=== PATIENT | male | born 1965 | race Caucasian/White ===

== ENCOUNTER 2021-08-17 05:22 | Observation (INO) ==
[2021-08-17] MEDS ORDERED: VANCOMYCIN 1,000 MG VIAL ONE (05:56)
[2021-08-17] MEDS ORDERED: CLINDAMYCIN INJ 900 MG/50 ML PREMIX IV ONE (05:56)
[2021-08-17] MEDS ORDERED: DIAZEPAM 5 MG TABLET PO ONE (06:19)
[2021-08-17] MEDS ORDERED: FAMOTIDINE 20 MG TABLET PO ONE (06:19)
[2021-08-17] MEDS ORDERED: FAMOTIDINE 20 MG TABLET ONE (06:26)
[2021-08-17] MEDS ORDERED: DIAZEPAM 5 MG TABLET ONE (06:26)
[2021-08-17] MEDS ORDERED: DEXAMETHASONE 4 MG/1 ML VIAL ONE ×2 (06:40→08:23)
[2021-08-17] MEDS ORDERED: LIDOCAINE 1% 5 ML VIAL ONE (06:40)
[2021-08-17] MEDS ORDERED: MIDAZOLAM 2 MG/2 ML VIAL ONE (06:40)
[2021-08-17] MEDS ORDERED: ROPIVACAINE 0.5% 30 ML VIAL ONE (06:40)
[2021-08-17] MEDS ORDERED: ALBUTEROL 2.5 MG/3 ML NEB RESP TX PRN (07:10)
[2021-08-17] MEDS ORDERED: fentaNYL 100 MCG/2 ML VIAL ONE (07:13)
[2021-08-17] MEDS ORDERED: diphenhydrAMINE CAP 25 MG CAPSULE PO PRN (07:14)
[2021-08-17] MEDS ORDERED: MORPHINE 2 MG/1 ML SYRINGE IV PRN ×2 (07:14)
[2021-08-17] MEDS ORDERED: MAGNESIUM HYDROXIDE SUSP 30 ML UDCUP PO PRN (07:14)
[2021-08-17] MEDS ORDERED: ONDANSETRON 4 MG/2 ML VIAL IV PRN ×2 (07:14→10:10)
[2021-08-17] MEDS ORDERED: VANCOMYCIN INJ 1,000 MG in SODIUM CHLORIDE 0.9% 250 ML IV ONE ×2 (07:39→16:00)
[2021-08-17] MEDS ORDERED: DESFLURANE 1 UNIT/15 MINUTE INH ONE (07:56)
[2021-08-17] MEDS ORDERED: ROCURONIUM 50 MG/5 ML VIAL IV ONE (07:56)
[2021-08-17] MEDS ORDERED: LIDOCAINE 2% 5 ML VIAL ONE (07:56)
[2021-08-17] MEDS ORDERED: SUCCINYLCHOLINE 200 MG/10 ML VIAL ONE (07:56)
[2021-08-17] MEDS ORDERED: TRANEXAMIC ACID 1,000 MG/10 ML VIAL ONE (07:56)
[2021-08-17] MEDS ORDERED: propofoL 200 MG/20 ML VIAL IV ONE (07:56)
[2021-08-17] MEDS ORDERED: LACTATED RINGERS 1,000 ML IV SCH (08:00)
[2021-08-17] MEDS ORDERED: BACITRACIN OINT 0.9 GM PACK TOP ONE (08:08)
[2021-08-17] MEDS ORDERED: ONDANSETRON 4 MG/2 ML VIAL ONE (08:23)
[2021-08-17] MEDS ORDERED: SUGAMMADEX 200 MG/2 ML VIAL IV ONE (08:24)
[2021-08-17] MEDS ORDERED: PHENYLEPHRINE 1 MG/10 ML SYRINGE IV ONE ×2 (08:58)
[2021-08-17] MEDS ORDERED: GLYCOPYRROLATE 0.4 MG/2 ML VIAL ONE (09:14)
[2021-08-17] MEDS ORDERED: MORPHINE 10 MG/1 ML VIAL ONE (10:14)
[2021-08-17] MEDS: MORPHINE 10 MG/1 ML VIAL IV PRN ×3 (10:16→10:32)
[2021-08-17] MEDS ORDERED: GLUCAGON 1 MG VIAL IM PRN (12:10)
[2021-08-17] MEDS ORDERED: DEXTROSE 50% 25 GM/50 ML SYRINGE IV PRN (12:10)
[2021-08-17] MEDS: KETOROLAC 30 MG/1 ML VIAL IV SCH ×3 (14:04→21:27)
[2021-08-17] MEDS: CLINDAMYCIN INJ 900 MG/50 ML PREMIX IV SCH ×2 (14:04→21:34)
[2021-08-17] MEDS: LACTATED RINGERS 1,000 ML IV SCH ×3 (14:04→23:33)
[2021-08-17] MEDS: GABAPENTIN 100 MG CAPSULE PO SCH ×2 (18:24→21:31)
[2021-08-17] MEDS: Fluticasone-Umeclidin-Vilanter [Trelegy Ellipta] 200-62.5-25 mcg INH SCH (18:24)
[2021-08-17] MEDS: FUROSEMIDE 80 MG TABLET PO SCH (18:24)
[2021-08-17] MEDS: INSULIN LISPRO 100 UNIT/ML SUBCUT SCH ×2 (18:25→21:28)
[2021-08-17] MEDS: POTASSIUM CHLORIDE 20 MEQ TABLET PO SCH (21:30)
[2021-08-17] MEDS: MELATONIN 3 MG TABLET PO PRN (21:31)
[2021-08-17] MEDS: DOCUSATE SODIUM 100 MG CAPSULE PO SCH (21:31)
[2021-08-17] MEDS: APIXABAN 2.5 MG TABLET PO SCH (21:31)
[2021-08-18] MEDS: KETOROLAC 30 MG/1 ML VIAL IV SCH ×2 (00:06→03:28)
[2021-08-18 06:49] LABS: Calcium 8.3 MG/DL (8.5-10.1); Osmolality,Calculated 282.7 MOS/KG (273-304); Potassium 4.1 MMOL/L (3.5-5.1)
[2021-08-18 06:57] LABS: Basophils % 0.1 % (0.0-0.8); Hematocrit 45.5 VOL% (42.0-52.0); Hemoglobin 13.5 GM/DL (14.0-18.0); Immature Granulocytes % 0.8 %; Immature Granulocytes Absolute 0.11 #; Lymphocytes # 0.7 10*3/uL (1.4-4.0); Lymphocytes % 4.8 % (21.2-54.2); Mean Corpuscular HGB Conc 29.7 GM/DL (32-36); Mean Corpuscular Volume 100.4 FL (87-102); Mean Platelet Volume 9.6 FL (9.6-12.0); Monocytes % 7.9 % (1.7-12.7); Neutrophils % 86.4 % (38.7-73.9); Platelet Count 260 T/CUMM (130-400); Red Blood Count 4.53 MC/CUMM (3.8-5.5); Red Cell Distribution Width 15.3 % (9.3-17.3); White Blood Count 14.1 T/CUMM (4-12)
[2021-08-18 07:02] LABS: Lymphocytes 3 % (20-55); Platelet Estimate Normal; Segmented Neutrophils 92 % (50-85); Total Cells Counted 100
[2021-08-18] MEDS: INSULIN LISPRO 100 UNIT/ML SUBCUT SCH ×4 (07:44→21:25)
[2021-08-18] MEDS: amLODIPine 10 MG TABLET PO SCH (08:58)
[2021-08-18] MEDS: METOPROLOL TARTRATE 100 MG TABLET PO SCH ×2 (08:58→21:25)
[2021-08-18] MEDS: ASCORBIC ACID 500 MG TABLET PO SCH (08:58)
[2021-08-18] MEDS: POTASSIUM CHLORIDE 20 MEQ TABLET PO SCH ×2 (08:58→21:25)
[2021-08-18] MEDS: allopurinoL 100 MG TABLET PO SCH (08:58)
[2021-08-18] MEDS: DOCUSATE SODIUM 100 MG CAPSULE PO SCH ×2 (08:58→21:24)
[2021-08-18] MEDS: APIXABAN 2.5 MG TABLET PO SCH ×2 (08:59→21:25)
[2021-08-18] MEDS: GABAPENTIN 100 MG CAPSULE PO SCH ×3 (08:59→21:24)
[2021-08-18] MEDS: ATORVASTATIN 20 MG TABLET PO SCH (09:00)
[2021-08-18] MEDS ORDERED: lisinopriL 20 MG TABLET PO SCH (09:00)
[2021-08-18] MEDS: FUROSEMIDE 80 MG TABLET PO SCH (10:00)
[2021-08-18] MEDS: Fluticasone-Umeclidin-Vilanter [Trelegy Ellipta] 200-62.5-25 mcg INH SCH (12:23)
[2021-08-18] MEDS: MELATONIN 3 MG TABLET PO PRN (21:24)
[2021-08-19 05:54] LABS: Calcium 8.4 MG/DL (8.5-10.1); Osmolality,Calculated 282.1 MOS/KG (273-304); Potassium 4.2 MMOL/L (3.5-5.1)
[2021-08-19 07:23] LABS: Basophils # 0.1 10*3/uL (0.0-0.2); Basophils % 0.5 % (0.0-0.8); Eosinophils # 0.5 10*3/uL (0.0-0.87); Eosinophils % 3.4 % (0.00-10.9); Hematocrit 42.3 VOL% (42.0-52.0); Hemoglobin 12.2 GM/DL (14.0-18.0); Immature Granulocytes % 0.6 %; Immature Granulocytes Absolute 0.08 #; Lymphocytes # 1.4 10*3/uL (1.4-4.0); Lymphocytes % 10.8 % (21.2-54.2); Mean Corpuscular HGB Conc 28.8 GM/DL (32-36); Mean Corpuscular Volume 101.9 FL (87-102); Mean Platelet Volume 9.5 FL (9.6-12.0); Neutrophils % 75.7 % (38.7-73.9); Platelet Count 252 T/CUMM (130-400); Red Blood Count 4.15 MC/CUMM (3.8-5.5); Red Cell Distribution Width 15.5 % (9.3-17.3); White Blood Count 13.2 T/CUMM (4-12)
[2021-08-19 07:30] LABS: Platelet Estimate Adequate
[2021-08-19] MEDS: ATORVASTATIN 20 MG TABLET PO SCH (08:38)
[2021-08-19] MEDS: ASCORBIC ACID 500 MG TABLET PO SCH (08:38)
[2021-08-19] MEDS: DOCUSATE SODIUM 100 MG CAPSULE PO SCH (08:38)
[2021-08-19] MEDS: amLODIPine 10 MG TABLET PO SCH (08:39)
[2021-08-19] MEDS: APIXABAN 2.5 MG TABLET PO SCH (08:39)
[2021-08-19] MEDS: GABAPENTIN 100 MG CAPSULE PO SCH (08:39)
[2021-08-19] MEDS: allopurinoL 100 MG TABLET PO SCH (08:39)
[2021-08-19] MEDS: POTASSIUM CHLORIDE 20 MEQ TABLET PO SCH (08:39)
[2021-08-19] MEDS: INSULIN LISPRO 100 UNIT/ML SUBCUT SCH ×2 (10:49→11:58)
[2021-08-19] MEDS: METOPROLOL TARTRATE 100 MG TABLET PO SCH (10:49)
[2021-08-19] MEDS: Fluticasone-Umeclidin-Vilanter [Trelegy Ellipta] 200-62.5-25 mcg INH SCH (10:49)
[2021-08-19 11:43] VITALS: BP 130/50
== END 2021-08-19 15:30 | disposition home or self-care (01) ==
LOC: N.SDSINP 05:22 → N.OR 05:22 → N.SDSINP 05:28 → N.3E 09:39
PROVIDERS: ADMIT Orthopaedic Surgery; ATTEND Orthopaedic Surgery